=== PATIENT | female | born 1995 | race Two or more races ===

== ENCOUNTER 2023-08-02 14:07 | Emergency (ER) | payer BC ==
[~2023-08-02] VITALS: Ht 157.5 cm; Wt 48.0 kg
[2023-08-02 14:28] LABS: Basophils # (auto) 0.1 10 ^3/uL (0-0.2); Basophils % (auto) 1.4 % (0.0-2.0); Eosinophils # (auto) 0.2 10 ^3/uL (0-0.8); Eosinophils % (auto) 4.8 % (0.0-7.0); Hematocrit 37.6 % (36.0-46.0); Hemoglobin 13.1 g/dL (12.2-16.2); Lymphocytes # (auto) 1.7 10 ^3/uL (0.4-5.4); Mean Corpuscular Hemoglobin 32.5 pg (28.0-32.0); Mean Corpuscular Hgb Conc. 34.8 g/dL (32.0-36.0); Mean Corpuscular Volume 93.4 fL (80.0-100.0); Monocytes # (auto) 0.6 10 ^3/uL (0-1.3); Monocytes % (auto) 12.4 % (0.0-12.0); Neutrophils # (auto) 2.3 10 ^3/uL (1.6-8.6); Neutrophils % (auto) 47.4 % (37.0-80.0); Nucleated Red Blood Cells % 0.1 %; Red Blood Cells 4.03 10^6/uL (4.0-5.20); Red Cell Distribution Width 13.4 % (11.8-14.3); White Blood Cell 4.9 10^3/uL (4.4-10.8)
[2023-08-02] MEDS ORDERED: MAALOX PLUS or MAALOX 30 ML PO ONE (14:30)
[2023-08-02] MEDS ORDERED: LIDOCAINE VISCOUS 2% 15ML UD PO ONE (14:30)
[2023-08-02 14:45] LABS: Alanine Aminotransferase 26 U/L (7-40); Albumin 4.5 g/dL (3.2-4.8); Alkaline Phosphatase 91 U/L (46-116); Anion Gap 10 (5-15); Aspartate Aminotransferase 52 U/L (13-40); BUN/Creatinine Ratio 15.5 (10.0-20.0); Blood Urea Nitrogen 9 mg/dL (9-23); Calcium 8.6 mg/dL (8.7-10.4); Carbon Dioxide 23 mmol/L (20-30); Chloride 104 mmol/L (98-107); Glucose 110 mg/dL (74-106); Lipase 74 U/L (12-53); Magnesium 1.8 mg/dL (1.6-2.6); Potassium 3.3 mmol/L (3.5-5.1); Sodium 137 mmol/L (136-145)
[2023-08-02 14:46] LABS: Bilirubin, Total 0.3 mg/dL (0.2-1.0); Total Protein 6.9 g/dL (5.7-8.2)
[2023-08-02 15:01] LABS: COVID19 ANTIGEN SOFIA FIA NEGATIVE (NEGATIVE)
[2023-08-02 15:02] LABS: Rapid Influenza B Negative (Negative)
[2023-08-02 15:03] LABS: Rapid Influenza A Positive (Negative)
[2023-08-02 15:09] LABS: Urine Bacteria FEW /hpf (None Seen); Urine Blood Negative /uL (Negative); Urine Clarity Clear (Clear); Urine Color Colorless (Yellow); Urine Protein, UAD Negative (Negative); Urine Specific Gravity 1.003 (1.001-1.035); Urine Urobilinogen Normal (Negative); Urine WBC 2 /hpf (0 - 5)
[2023-08-02 16:40] VITALS: PULSE 61; RESP 18; O2SAT 97
[2023-08-02] MEDS ORDERED: OSELTAMIVIR 75 MG CAP PO ONE (16:45)
[2023-08-02 19:40] VITALS: PULSE 60; RESP 19; O2SAT 97
[2023-08-02] MEDS ORDERED: ASPirin 325 MG TAB PO ONE (19:45)
[2023-08-02] MEDS ORDERED: IBUP-1454 PO (19:59)
[2023-08-02] MEDS ORDERED: BENZ100C97 PO (19:59)
[2023-08-02] MEDS ORDERED: TAMIFLU PO (19:59)
[2023-08-02] MEDS ORDERED: ACET500T58 PO (19:59)
[2023-08-02] MEDS ORDERED: LORA-622 PO (19:59)
[2023-08-02 21:17] VITALS: BP 102/63; PULSE 60; RESP 19; O2SAT 97
== END 2023-08-02 21:26 | disposition home or self-care (01) ==
LOC: ER 14:07
DX: J10.1 Influenza due to other identified influenza virus with other respiratory manifestations (principal); R07.89 Other chest pain; Z20.822 Contact with and (suspected) exposure to COVID-19
CPT/HCPCS: 36415; 71046; 80053; 81001; 81025; 83690; 83735; 84484; 85025; 87426; 87804; 93005

== ENCOUNTER 2025-09-05 10:06 | Emergency (ER) | payer BC, MEDICAID ==
[~2025-09-05] VITALS: Ht 157.5 cm; Wt 47.1 kg
[~2025-09-05 10:06] MED LIST: ACET500T58 PO; BENZ100C97 PO; IBUP-1454 PO; LORA-622 PO; TAMIFLU PO
[2025-09-05 10:11] VITALS: TEMP 98.7
--- NOTE | 2025-09-05 10:42 | ED.PDOC ---
History of Present Illness HPI Comments 29 y/o F presents with c/c of posterior headache, dizziness, blurry vision, nausea, and generalized weakness s/p mechanical fall and injury. Patient reports on her pet dog pushing her backwards and causing her to hit the back of her head against the concrete sidewalk, yesterday, evening. Patient has no recollection of passing out. She states on developing symptoms soon after getting up. No history of previous head injuries or recent ailments. Denies any numbness, tingling, neck pain, or further acute symptoms. Chief Complaint: Head Injury Time Seen by MD: 10:30 Primary Care Provider: BHAVIN Velarde Notes: Nurses Notes, Medications, Allergies Allergies: Coded Allergies: NO KNOWN ALLERGIES (Unverified , 08/02/23) Home Meds Active Scripts Benzonatate (Benzonatate) 100 Mg Cap, 1 CAP PO TIDPRN PRN, #20 CAP Prov:ELVIA SANCHEZ PAC 08/02/23 Loratadine (Claritin) 10 Mg Tab, 1 TAB PO DAILY for 14 Days, #14 TAB 0 Refills Prov:ELVIA SANCHEZ PAC 08/02/23 Ibuprofen (Ibuprofen) 600 Mg Tab, 1 TAB PO Q6HP PRN, #30 TAB Prov:ELVIA SANCHEZ PAC 08/02/23 Acetaminophen (Acetaminophen) 500 Mg Tab, 500 MG PO Q4HP PRN, #30 TAB Prov:ELVIA SANCHEZ PAC 08/02/23 Oseltamivir Phosphate (Tamiflu) 75 Mg Cap, 75 MG PO BID for 5 Days, #10 CAP Prov:ELVIA SANCHEZ PAC 08/02/23 Information Source: Patient Mode of Arrival: Ambulatory Severity: Moderate Timing: Hours Duration: Since onset Prehospital treatment: None Past Medical History PAST MEDICAL HISTORY: Denies Surgical History: Denies all surgeries DERIVATIVES TRADER History: No Pertinent DERIVATIVES TRADER History Family History Family History: Reviewed,noncontributory to illness, No family hx of Cancer, No family hx of DM, No family hx of Heart alejandro, No family hx of HTN, No family hx ofKidney alejandro, No family hx of Liver alejandro, No family hx of Lung alejandro, No family hx of Stroke Social History Smoker: Non-Smoker Alcohol: Denies ETOH Use Drugs: Denies Drug Use Lives In: Home All Other Systems: Reviewed and Negative (Comprehensive review of systems are negative unless stated in HPI) Physical Exam General Appearance: Moderate Distress HEENT: Normal ENT Inspection, Pharynx Normal, TMs Normal Neck: Full Range of Motion, Non-Tender, Normal, Normal Inspection Respiratory: Chest Non-Tender, Lungs Clear, No Accessory Muscle Use, No Respiratory Distress, Normal Breath Sounds Cardiovascular: No Edema, No JVD, No Murmur, No Gallop, Normal Peripheral Pulses, Regular Rate/Rhythm Breast Exam: Deferred Gastrointestinal: No Organomegaly, Non Tender, No Pulsatile Mass, Normal Bowel Sounds, Soft Genitalia: Deferred Pelvic: Deferred Rectal: Deferred Extremities: No calf tenderness, Normal capillary refill, Normal inspection, Normal range of motion, Non-tender, No pedal edema Musculoskeletal : Apperance: Normal Neurologic: Alert, illustrator set II-XII nml as Tested, No Motor Deficits, Normal Affect, Normal Mood, No Sensory Deficits Cerebellar Function: Normal Reflexes: Normal Skin: Dry, Normal Color, Warm Peripheral Pulses: 3+ Radial (R), 3+ Radial (L) Lymphatic: No Adenopathy Was a procedure done? Was a procedure done?: No Differential Dx Considerations may include: closed head injury, fractures, contusion, intracranial hemorrhaging, among others X-Ray, Labs, Meds, VS Vital Signs Date Time Temp Pulse Resp B/P (MAP) Pulse Ox O2 Delivery O2 Flow Rate FiO2 09/05/25 10:11 98.7 60 18 126/81 95 98.7 Patient alert. Status post head injury. Vitals stable. Answering all questions. No sign of any obvious injury. Moving all extremities. No neurological deficit. No abnormality in vision. Able to walk a straight line. Mentating well. No acute process. Explained to the patient. Was told to follow up with her primary care physician. Was told to come back if there is any problem. Time of 1ST Reevaluation: 11:00 Reevaluation 1ST: Unchanged Patient Education/Counseling: Diagnosis, Treatment, Need For Follow Up Family Education/Counseling: No Family Present SEPSIS Sepsis Screen Date sepsis recognized/suspect: Sep 05, 2025 Time Sepsis recognized/suspect: 1013 Recent Procedure: No On Antibiotic Therapy: No Respiratory Rate >20: No Heart Rate >90: No Temp<36 C (96.8 F) or >38.3 C: No SBP <90 or MAP <65 mmHG: No New Acute Mental Status Change: No Is the patient on CPAP, BIPAP,: No Physician Orders Head Without Contrast (09/05/25 10:14) Vital Signs Date Time Temp Pulse Resp B/P (MAP) Pulse Ox O2 Delivery O2 Flow Rate FiO2 09/05/25 10:11 98.7 60 18 126/81 95 98.7 Departure 1 Departure Time of Disposition: 11:52 Impression: Primary Impression: Head injury Qualified Codes: S09.90XA - Unspecified injury of head, initial encounter Disposition: HOME / SELF CARE / HOMELESS Condition: Good Discharged With: Self Critical Care Note Critical Care Time?: No Stability Stability form required: No Heart Score Heart Score: Heart Score Response (Comments) Value History N/A 0 EKG N/A 0 Age N/A 0 Risk Factors N/A 0 Troponin N/A 0 Total 0 I personally scribed for BABATUNDE PASTRANA MD ([email or web address]) on 09/05/25 at 10:42. Electronically submitted by Pancho Garcia ([email or web address]). BABATUNDE PASTRANA MD Sep 05, 2025 10:42
--- NOTE | 2025-09-05 10:58 | DVH ---
CT HEAD WITHOUT CONTRAST Indication: HEAD INJURY EXAM DATE: 09/05/2025 10:19 AM COMPARISON: None TECHNIQUE: CT of the head without intravenous contrast. RADIATION DOSE: CTDIvol: 49.98 mGy, DLP: 101 mGy*cm FINDINGS: There is no intracranial hemorrhage. There is no extra-axial fluid, mass, mass effect or midline shif t. The ventricles are midline and normal in size. Basilar cisterns are patent. Woods-white differentia tion is maintained. Mastoids well pneumatized. Sphenoid sinus disease.. Imaged portion of the orbits are unremarkable. IMPRESSION: No intracranial hemorrhage or mass effect. Sphenoid sinus disease.
[2025-09-05 12:43] VITALS: BP 118/69; PULSE 58; RESP 18; O2SAT 98
== END 2025-09-05 12:48 | disposition home or self-care (01) ==
LOC: ER 10:06
DX: S09.8XXA Other specified injuries of head, initial encounter (principal); Z79.899 Other long term (current) drug therapy; W01.10XA Fall on same level from slipping, tripping and stumbling with subsequent striking against unspecified object, initial encounter; Y93.89 Activity, other specified; Y92.89 Other specified places as the place of occurrence of the external cause; Y99.8 Other external cause status
CPT/HCPCS: 70450